=== PATIENT | male | born 1975 | race Caucasian/White ===

== ENCOUNTER 2019-09-05 10:43 | Inpatient (IN) | payer SELFPAY ==
[2019-09-05 10:55] VITALS: BP 124/84; PULSE 100; RESP 18; TEMP 36.7; O2SAT 97; BMI 26.5
--- NOTE | 2019-09-05 11:03 | ED_ITS ---
HPI - Psych General: Chief Complaint: Psychiatric Symptoms Stated Complaint: MHE Time Seen by Provider: 09/05/19 11:03 Source: patient Mode of arrival: ambulatory Limitations: no limitations History of Present Illness: HPI Narrative: Patient is a 44-year-old male who presents to ED today with complaints of worsening depression and anxiety; patient states he has felt suicidal over the past couple of days; patient states he loaded a gun and [place] the [place] last night with a plan to kill himself; patient reports 1 previous suicide attempt almost 20 years ago; he admits to marijuana use and occasional alcohol use as well as previous methamphetamine use but has not used in over 3 years; patient does not have a PCP, psychiatrist, counselor/therapist; denies visual or auditory hallucinations MD complaint: suicidal ideation and feels depressed History of same: Yes Associated psychiatric symptoms: depression and suicidal ideation Associated symptoms: Reports depression and suicidal ideation; Deny auditory hallucinations, visual hallucinations or homicidal ideation Treatments prior to arrival: none If self harm: admits thoughts of self harm Review of Systems Const: Denies: fever or chills Card: Denies: chest pain, palpitations, lightheadedness or syncope Resp: Denies: shortness of breath GI: Denies: abdominal pain, nausea, vomiting or diarrhea Skin/Breast: Denies: rash Neuro: Denies: headache Psych: Reports: anxiety, depression, hopelessness and suicidal ideation; Denies: mood swings, panic attacks, visual hallucinations, auditory hallucinations or homicidal ideation PFSH ED PFSH: Statuses (acute, chronic, etc) shown below reflect problem list status as previously entered and may not be historically accurate Social History Smoking and tobacco status: current every day smoker Physical Exam Const: COMMON NORMALS: no apparent distress, oriented x3, alert and well nourished GENERAL APPEARANCE: cooperative and well kempt Resp: COMMON NORMALS: normal respiratory effort and clear to auscultation bilaterally AUSCULTATION: clear to auscultation bilaterally Cardio: COMMON NORMALS: regular rate and regular rhythm RATE: regular rate RHYTHM: regular rhythm Neuro: COMMON NORMALS: oriented x3 SENSORIUM/ORIENTATION: Yes alert Psych: COMMON NORMALS: mental status grossly normal, thought process normal, cooperative, speech normal and activity/motor behavior normal APPEARANCE: Yes well kempt ACTIVITY/MOTOR BEHAVIOR: Yes appropriate eye contact and No psychomotor agitation SPEECH: Yes normal speech MOOD & AFFECT: Yes flat affect THOUGHT PROCESS: normal thought process THOUGHT CONTENT: Yes suicidality MEMORY/COGNITION: Yes cognition grossly intact INSIGHT: ins ight good JUDGEMENT: judgment good MDM - Psych MDM Narrative: Medical decision making narrative: Dr. Meyer will place admit orders. Lab Data: Labs: Lab Results 09/05/19 09/05/19 09/05/19 Range/Units 11:30 11:45 11:45 WBC 8.0 (4.0-10.0) 10^3/ uL RBC 5.29 (4.1-5.3) 10^6/u L Hgb 16.0 (11.7-16.6) g/dL Hct 46.4 (42.0-52.0) % MCV 87.7 (80-94) fL MCH 30.2 (28.0-34.0) pg MCHC 34.5 (30.0-36.0) g/dL RDW 12.3 (12.1-15.1) % Plt Count 249 (130-400) 10^3/c mm MPV 9.3 (7.4-10.4) fL Neut % (Auto) 67.4 % Lymph % (Auto) 25.8 % Hutchinson % (Auto) 6.1 % Eos % (Auto) 0.2 % Baso % (Auto) 0.4 % Neut # (Auto) 5.4 (1.8-7.7) 10^3/u L Lymph # (Auto) 2.1 (0.8-4.8) 10^3/u L Hutchinson # (Auto) 0.5 (0.2-0.9) 10^3/u L Eos # (Auto) 0.0 (0.0-0.8) 10^3/u L Baso # (Auto) 0.0 (0.0-0.1) 10^3/u L Nucleated RBC % (a uto) 0 % Nucleated RBCs # 0.0 /100WBC Sodium 138 (136-145) mmol/L Potassium 4.3 (3.5-5.1) mmol/L Chloride 100 (98-107) mmol/L Carbon Dioxide 28 (22-29) mmol/L Anion Gap 14.3 (5-19) BUN 8 (6-20) mg/dL Creatinine 1.1 (0.7-1.2) mg/dL GFR Calculation 73.4 L (90-130) mL/min Glucose 107 (74-109) mg/dL Calcium 10.6 H (8.6-10.0) mg/Dl Total Bilirubin 0.9 (0.15-1.2) mg/dL AST 16 (0-40) U/L ALT 19 (0-41) U/L Alkaline Phosphata se 98 (40-130) IU/L Total Protein 7.6 (6.6-8.7) g/dL Albumin 4.8 (3.5-5.2) g/dL Globulin 2.8 (1.3-4.6) g/dL Salicylates < 0.3 L (3-10) mg/dL Urine Opiates Scre en Negative (Negative) ng/mL Acetaminophen < 5.0 L (10-30) ug/mL Ur Barbiturates Sc reen Negative (Negative) ng/mL Ur Phencyclidine S crn Negative (Negative) ng/mL Ur Amphetamines Sc reen Negative (Negative) ng/mL U Benzodiazepines Scrn Negative (Negative) ng/mL Urine Cocaine Scre en Negative (Negative) ng/mL U Marijuana (THC) Screen Positive H (Negative) ng/mL Ethyl Alcohol < 10 (0-10) mg/dL Discharge Plan Discharge Patient Disposition: Xfer Psychiatric Hosp Clinical Impression: Suicidal ideation Condition: Stable Coding Level of Care Code ED Hospitality Services Manager for Monique Cruz Exam Problem Focused
--- NOTE | 2019-09-05 11:21 | PC.NURSE ---
Patient states his pain is chronic, has no prescription for and does not want to go to pain clinic because they are just drug pushers.
--- NOTE | 2019-09-05 11:36 | PC.NURSE ---
pt placed in paper scrubs and belongings placed in labeled bags. pt belongings placed outside of room. pt ambulated to bathroom and provided urine sample. UA at bedside. RN notified. Pt given warm blanket and has no further needs at this time. Sitter at bedside.
[2019-09-05 11:52] LABS: Basophils % 0.4 %; Eosinophils % 0.2 %; Hematocrit 46.4 % (42.0-52.0); Lymphocytes # 2.1 10^3/uL (0.8-4.8); Lymphocytes % 25.8 %; Mean Corpuscular HGB Conc 34.5 g/dL (30.0-36.0); Mean Corpuscular Hemoglobin 30.2 pg (28.0-34.0); Mean Corpuscular Volume 87.7 fL (80-94); Mean Platelet Volume 9.3 fL (7.4-10.4); Monocytes # 0.5 10^3/uL (0.2-0.9); Monocytes % 6.1 %; Neutrophils # 5.4 10^3/uL (1.8-7.7); Neutrophils % 67.4 %; Nucleated Red Blood Cells % 0 %; Platelet Count 249 10^3/cmm (130-400); Red Blood Count 5.29 10^6/uL (4.1-5.3); Red Cell Distribution Width 12.3 % (12.1-15.1)
[2019-09-05 12:04] LABS: Alanine Aminotransferase 19 U/L (0-41); Albumin Level 4.8 g/dL (3.5-5.2); Alkaline Phosphatase 98 IU/L (40-130); Anion Gap 14.3 (5-19); Aspartate Amino Transferase 16 U/L (0-40); Blood Urea Nitrogen 8 mg/dL (6-20); Calcium 10.6 mg/Dl (8.6-10.0); Carbon Dioxide 28 mmol/L (22-29); Chloride 100 mmol/L (98-107); Globulin 2.8 g/dL (1.3-4.6); Glomerular Filtration Rate 73.4 mL/min (90-130); Glucose 107 mg/dL (74-109); Potassium 4.3 mmol/L (3.5-5.1); Sodium 138 mmol/L (136-145); Total Bilirubin 0.9 mg/dL (0.15-1.2); Total Protein 7.6 g/dL (6.6-8.7)
[2019-09-05 12:06] LABS: Acetaminophen < 5.0 ug/mL (10-30); Alcohol Level < 10 mg/dL (0-10); Salicylate < 0.3 mg/dL (3-10)
[2019-09-05 12:11] LABS: Amphetamines Screen Urine Negative (Negative); Barbiturates Screen Urine Negative (Negative); Benzodiazepines Screen Urine Negative (Negative); Cocaine Screen Urine Negative (Negative); Opiate Screen Urine Negative (Negative); PCP Screen Urine Negative (Negative); THC Screen Urine Positive (Negative)
[2019-09-05 14:39] VITALS: BP 117/83; PULSE 82; RESP 18; TEMP 36.9; O2SAT 95
[2019-09-05 15:00] VITALS: BP 117/83; PULSE 82; RESP 18; TEMP 36.9; O2SAT 95
[2019-09-05 15:51] VITALS: BP 126/77; PULSE 91; RESP 18; TEMP 36.4; O2SAT 99
[2019-09-05] MEDS: acetaminophen 325 mg Tablet 650 MG PO (19:40)
[2019-09-05 19:57] VITALS: BP 119/81; PULSE 79; RESP 19; TEMP 36.6; O2SAT 95
[2019-09-06 06:00] VITALS: BP 118/81; PULSE 78; RESP 18; TEMP 36.5; O2SAT 97
[2019-09-06] MEDS: acetaminophen 325 mg Tablet 650 MG PO (07:38)
[2019-09-06 14:00] VITALS: BP 107/74; PULSE 88; RESP 16; TEMP 36.7; O2SAT 97
--- NOTE | 2019-09-06 17:51 | P.HP_ITS ---
Providers/Chief Complaint Admitting Physician: Noble Basurto MD Chief Complaint: SUICIDAL IDEATIONS HPI NPU History of Present Illness Tuan Carvalho is a 44 year old male who presented to the emergency room after reportedly going out into the [place] with a loaded weapon with a plan to kill himself. He endorses depression without clear etiology. He does endorse that he has had periods of difficulties with relationships and things of that nature. He reports that he has these periods of high energy but poor functioning with poor sleep. He reports that he has family but is not connected to them. He re ports array of optimism though because reportedly a good friend had heard that he was somewhat down and out and said that he would have worked for him as soon as he got out of the hospital and was stable. He reports a previous trial of Prozac and Wellbutrin that were ineffective for reasons that he does not quite recall he denies ever being on a mood stabilizer. We discussed the risks benefits and alternatives of a trial of medication and he understood and agreed to proceed as is documented in his note. Psychiatric history: As above. No inpatient hospitalizations. Substance abuse history: He endorses smoking cigarettes, and also endorses drinking alcohol smoking marijuana, but does not endorse significant addiction treatment. His UDS was positive for cannabis. Developmental history: He reports that his mother's with him was unremarkable and he learned to walk and talk and met his developmental milestones on time. When he went to school he denies speech therapy, learning support or emotional support or special education classes. Psychosocial history: He reports that his parents were together when he was born. He reports that his childhood was tough at times. He endorses being a heterosexual with his longest relationship being a few years. He denied being , but reports having 2 sons one is 18 and in the [employer] with whom he has no contact the other is 12. He denies being in the and endorses being a [employer]. 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 He endorses having his own apartment. Legal history: He has been in alf before but denies significant legal issues. Meds NPU Home Medications Medication Instructions Recorded Confirmed Type naproxen sodium [Aleve] 440 mg PO BID PRN 09/05/19 09/05/19 History Allergies Allergy/AdvReac Type Severity Reaction Status Date / Time No Known Allergies Allergy Verified 09/05/19 11:02 [facility] NPU PFS: Statuses (acute, chronic, etc) shown below reflect problem list status as previously entered and may not be historically accurate Social History Smoking and tobacco status: current every day smoker Mental Status Exam MSE Comments: This is a well-nourished well-developed white male with adequate dress, grooming and eye contact. No abnormal movements except for psychomotor retardation. Cooperative with exam in mild distress. Speech decreased rate and normal volume. Mood described as depressed affect congruent. Thought process organized. Thought content: Patient endorsed suicidal thoughts but denied any homicidal thoughts, there were no delusions reported or noted, he denies any auditory or visual hallucinations. Attention and concentration were intact and memory appeared reliable but none were formally tested. He is alert and oriented x3. Insight and judgment are fair. Vitals/I&O/Wt Last Vital Signs Temp 98.0 F 09/06/19 14:00 Pulse 88 09/06/19 14:00 Resp 16 09/06/19 14:00 BP 107/74 09/06/19 14:00 Pulse Ox 97 09/06/19 14:00 Weight last 48 hrs Weight 83.915 kg A&P Assessment and plan (1) Depressive disorder: This is a 44-year-old white male with a reported history of mood issues going back to his you but without significant treatment in his life who presents after reportedly going into the [place] with a loaded weapon with thoughts to kill himself before coming to the emergency room. 1. Continue current medications. 2. Start Lexapro 10 mg p.o. every morning and consider the possibility of a mood stabilizer. 3. Encouraged individual, group and milieu therapy. 4. Continue every 15 minute checks for safety. 5. Encourage sober living follow-up to the highest level to which he is willing to commit. Status: Acute Code(s): F32.9 - Major depressive disorder, single episode, unspecified Involuntary Hold Information 96 Hour Hold: 96 Hour Involuntary Admission: No Attestations NPU Medical Necessity Statement*: Inpatient hospitalization is medically necessary and the clinically appropriate intervention at this time. He will be in the hospital for over 2 midnights. We will initiate medication and titrate and monitor for effect. Likely length of stay 3-5 days. Coding Level of Care Code Acute Primer Assembler for Monique Cruz Diagnoses Depressive disorder F32.9
[2019-09-06] MEDS: escitalopram 10 mg Tablet PO (19:12)
[2019-09-06] MEDS: nicotine 2 mg Gum BUCCAL (19:54)
[2019-09-06 20:46] VITALS: BP 110/75; PULSE 72; RESP 16; TEMP 36.9; O2SAT 95
[2019-09-07 06:00] VITALS: BP 114/76; PULSE 72; RESP 16; TEMP 36.9; O2SAT 96
[2019-09-07] MEDS: acetaminophen 325 mg Tablet 650 MG PO ×2 (07:54→18:11)
[2019-09-07] MEDS: escitalopram 10 mg Tablet PO (08:02)
--- NOTE | 2019-09-07 10:01 | P.PN_ITS ---
Subjective NPU Subjective: Interval history: Tuan presents today reporting that he feels a little tired or dragging with the initiation of the Lexapro. Otherwise he denies feeling worse and endorses a plan moving forward to get back to work and get things back on track. He reports that he has spoken with his younger son is hoping to see him soon. He reports that he knows some of the things he needs to do for them to get better. It is just a matter of doing them. He is still complaining of his shoulder pain being extreme and making it nearly impossible to sleep. We discussed getting a hospitalist consult to evaluate what the source of that extreme pain is. Mental Status Exam MSE Comments: This is a well-nourished well-developed white male with adequate dress, grooming and eye contact. No abnormal movements except for psychomotor retardation. Cooperative with exam in mild distress. Speech decreased rate and normal volume. Mood described as depressed affect congruent. Thought process organized. Thought content: Patient endorsed suicidal thoughts that are lessening but denied any homicidal thoughts, there were no delusions reported or noted, he denies any auditory or visual hallucinations. Attention and concentration were intact and memory appeared reliable but none were formally tested. He is alert and oriented x3. Insight and judgment are fair. Vitals/I&O/Wt Last Vital Signs Temp 97.9 F 09/08/19 06:00 Pulse 69 09/08/19 06:00 Resp 17 09/08/19 06:00 BP 123/82 09/08/19 06:00 Pulse Ox 98 09/08/19 06:00 A&P Additional A&P Information Additional A&P Information: This is a 44-year-old white male with a reported history of mood issues going back to his you but without significant treatment in his life who presents after reportedly [facility] a loaded [place] with thoughts to kill himself before coming to the emergency room. 1. Continue current medications. 2. consider the possibility of a mood stabilizer. 3. Encouraged individual, group and milieu therapy. 4. Continue every 15 minute checks for safety. 5. Encourage sober living follow-up to the highest level to which he is willing to commit. Involuntary Hold Information 96 Hour Hold: 96 Hour Involuntary Admission: No Attestations NPU Medical Necessity Statement*: Inpatient hospitalization is medically necessary and the clinically appropriate intervention at this time. We will initiate medication and titrate and monitor for effect. Likely length of stay 2-4 days. Coding Level of Care Code Acute Swedger for Monique Cruz
[2019-09-07 14:00] VITALS: BP 113/76; PULSE 87; RESP 19; TEMP 36.9; O2SAT 97
[2019-09-07] MEDS: nicotine 2 mg Gum BUCCAL (17:29)
[2019-09-07 19:54] VITALS: BP 109/75; PULSE 76; RESP 17; TEMP 36.9; O2SAT 95
[2019-09-08 06:00] VITALS: BP 123/82; PULSE 69; RESP 17; TEMP 36.6; O2SAT 98
[2019-09-08] MEDS: escitalopram 10 mg Tablet PO (09:25)
--- NOTE | 2019-09-08 10:10 | P.PN_ITS ---
Subjective NPU Subjective: Interval history: Tuan presents today reporting that he is going okay on the medication. The hospitalist came by to evaluate shoulder and we agreed to await his recommendations prior to making any decisions. At this point he is feeling optimistic about getting back to work with his mood managed and returning to previous level of high functioning. 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 He reports that he is hopeful that the medication will help curb his mood and with possible recommendations for his shoulder he might really get back on track. Mental Status Exam MSE Comments: This is a well-nourished well-developed white male with adequate dress, grooming and eye contact. No abnormal movements except for improving psychomotor retardation. Cooperative with exam in mild distress. Speech decrea sed rate and normal volume. Mood described as a little better, affect congruent. Thought process organized. Thought content: Patient endorsed suicidal thoughts continue to decrease and denied any homicidal thoughts, there were no delusions reported or noted, he denies any auditory or visual hallucinations. Attention and concentration were intact and memory appeared reliable but none were formally tested. He is alert and oriented x3. Insight and judgment are fair. Vitals/I&O/Wt Last Vital Signs Temp 97.9 F 09/08/19 06:00 Pulse 69 09/08/19 06:00 Resp 17 09/08/19 06:00 BP 123/82 09/08/19 06:00 Pulse Ox 98 09/08/19 06:00 A&P Additional A&P Information Additional A&P Information: This is a 44-year-old white male with a reported history of mood issues going back to his you but without significant treatment in his life who presents after reportedly going into the [place] with a loaded weapon with thoughts to kill himself before coming to the emergency room. 1. Continue current medications. 2. consider the possibility of a mood stabilizer. 3. Encouraged individual, group and milieu therapy. 4. Continue every 15 minute checks for safety. 5. Encourage sober living follow-up to the highest level to which he is willing to commit. Involuntary Hold Information 96 Hour Hold: 96 Hour Involuntary Admission: No Attestations NPU Medical Necessity Statement*: Inpatient hospitalization is medically necessary and the clinically appropriate intervention at this time. We will initiate medication and titrate and monitor for effect. Likely length of stay 2-3 days. Coding Level of Care Code Acute Beauty Shop Manager for Monique Cruz
[2019-09-08] MEDS: acetaminophen 325 mg Tablet 650 MG PO ×2 (13:29→20:20)
[2019-09-08 13:51] VITALS: BP 113/75; PULSE 64; RESP 18; TEMP 36.6; O2SAT 97
--- NOTE | 2019-09-08 15:53 | XRR_ITS ---
PROCEDURE INFORMATION: Exam: XR Left Shoulder Exam date and time: 09/08/2019 3:54 PM Age: 44 years old Clinical indication: Pain; Shoulder; Left TECHNIQUE: Imaging protocol: XR Left shoulder. Views: 2 or more views. COMPARISON: No relevant prior studies available. FINDINGS: There is no acute fracture or dislocation. The acromioclavicular joint alignment is appropriate. The subacromial joint space is well-preserved. The glenohumeral joint is unremarkable. No calcific tendinopathy. The visualized lung apex is clear. The visualized ribs are intact. Other findings: Moderate degenerative changes of the left acromioclavicular joint are noted. XR/XR shoulder LT min 2V* [id number] IMPRESSION: No acute bony abnormality.
--- NOTE | 2019-09-08 15:53 | ECG_ITS ---
Measurements Intervals [place] Rate: 66 P: MO: 0 QRS: -19 QRSD: 137 T: 75 QT: 455 QTc: 478 ATRIAL FLUTTER/TACHYCARDIA INTRAVENTRICULAR CONDUCTION DELAY [130+ ms QRS DURATION] No previous ECG available for comparison Electronically Signed On 09-09-2019 19:12:22 ELECTRODE CLEANER by Fadumo Lyons M.D. [email or web address]
--- NOTE | 2019-09-08 16:03 | CTR_ITS ---
PROCEDURE INFORMATION: Exam: CT Cervical Spine Without Contrast Exam date and time: 09/08/2019 4:07 PM Age: 44 years old Clinical indication: Neck pain and other: Lt shoulder pain; Additional info: Left shoulder pain with pins and needle TECHNIQUE: Imaging protocol: Computed tomography images of the cervical spine without contrast. Total DLP: 541.41 mGy-cm Radiation optimization: All CT scans at this facility use at least one of these dose optimization techniques: automated exposure control; mA and/or kV adjustment per patient size (includes targeted exams where dose is matched to clinical indication); or iterative reconstruction. COMPARISON: No relevant prior studies available. FINDINGS: Vertebrae: No acute fracture. Normal alignment. Discs/Spinal canal/Neural foramina: No spinal stenosis. No neural foraminal narrowing. Soft tissues: Unremarkable. Lungs: Lung apices are normal. CT/CT cervical spin wo con* [id number] IMPRESSION: No acute findings. Radiation Dose CTDIVOL = (mGy): DLP = 541.41 (mGy-cm)
--- NOTE | 2019-09-08 16:14 | PC.NURSE ---
PT IS CURRENTLY OFF OF THE FLOOR ACCOMPANIED BY SECURITY TO CT.
--- NOTE | 2019-09-08 16:30 | PC.NURSE ---
PT RETURNED TO UNIT ACCOMPANIED BY SECURITY.
--- NOTE | 2019-09-08 16:30 | PM.PN ---
Subjective Subjective: Interval history: Seen in NPU with nurse bedside. No acute events. Denies any SOB, CP ,cough, headache, palpitations, N/V, abdominal pain. Medications: Reviewed: Yes Vitals/I&O/Wt Last Vital Signs Temp 97.9 F 09/08/19 13:51 Pulse 64 09/08/19 13:51 Resp 18 09/08/19 13:51 BP 113/75 09/08/19 13:51 Pulse Ox 97 09/08/19 13:51 Physical Exam Narrative: EXAM NARRATIVE: General: No acute distress, AO x3 HEENT: PERRLA, pupils bilaterally equal and reactive Chest: Normal vesicular breath sounds, no added sounds, equal good air entry bilaterally CVS: S1-S2 regular, no murmurs, no tachycardia, no gallops, no rubs Abdomen: Soft, nontender, no organomegaly, bowel sounds present Neuro: No focal deficits, no facial deformity, AO x3, power 5/5 in all limbs A&P Assessment and plan (1) Depressive disorder: Status: Acute Code(s): F32.9 - Major depressive disorder, single episode, unspecified (2) Suicidal ideation: Status: Acute Code(s): R45.851 - Suicidal ideations (3) Left shoulder pain: Status: Acute Code(s): M25.512 - Pain in left shoulder (4) Atrial flutter: Status: Acute Code(s): I48.92 - Unspecified atrial flutter Additional A&P Information Additional A&P Information: Shoulder pain: Imaging reviewed. S/o degenerative changes. Will advice PT as patient has never had PT before. Will need OP PT as well Naproxen for pain, Ice packs. A flutter on EKG: Pt has f/h/o arrhythmia. Denies any palpitations. Rate controlled. TSH along with other labs which were ordered awaited. Vitals Qshift. D/w Dr. Basurto. Will start pt on Eliquis 5 mg BID. Discussed with patient regarding risk factor vs benifits. Patient verbalised understanding and wants to start meds. Would need ECHO once cleared from NPU. Can get as outpatient. If elevated HR can start on low dose lopressor 12.5 mg BID. Controlled for now so will hold off. Thank you for consult. Will continue to follow Attestations Medical Necessity Statement*: As per primary team. Coding Level of Care Code Acute Lead Informatica Developer for Monique Linderd Diagnoses Depressive disorder F32.9 Suicidal ideation R45.851 Left shoulder pain M25.512 Atrial flutter I48.92
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
[2019-09-08 19:43] VITALS: BP 118/79; PULSE 69; RESP 18; TEMP 36.7; O2SAT 98
[2019-09-08] MEDS: trazodone 50 mg Tablet PO (21:42)
[2019-09-09 06:00] VITALS: BP 120/77; PULSE 71; RESP 20; TEMP 36.5; O2SAT 97
[2019-09-09] MEDS: escitalopram 10 mg Tablet PO (08:19)
[2019-09-09] MEDS: acetaminophen 325 mg Tablet 650 MG PO ×3 (08:20→20:51)
[2019-09-09 08:32] LABS: Chol HDL Ratio 3.87 mg/dL (1.0-5.00); Cholesterol 174 mg/dL (0-200); HDL Cholesterol 45 mg/dL (60-100); LDL Cholesterol Calculated 111 mg/dL (50-129); Thyroid Stimulating Hormone 1.11 uIU/mL (0.27-4.20); Triglycerides 91 mg/dL (0-150); VLDL Cholestrol Calculation 18 mg/dL (0-30)
[2019-09-09 09:08] LABS: Estmated Average Glucose 100; Hemoglobin A1C 5.1 % (4.0-6.0)
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
[2019-09-09 14:00] VITALS: BP 135/83; PULSE 83; RESP 20; TEMP 36.9; O2SAT 96
[2019-09-09] MEDS: apixaban 5 mg Tablet PO (17:08)
[2019-09-09 20:04] VITALS: BP 129/86; PULSE 68; RESP 16; TEMP 36.6; O2SAT 97
[2019-09-09 20:27] VITALS: BP 129/86; PULSE 68; RESP 16; TEMP 36.6; O2SAT 97
[2019-09-09] MEDS: trazodone 50 mg Tablet PO (22:31)
[2019-09-10 06:00] VITALS: BP 133/80; PULSE 74; RESP 19; TEMP 36.6; O2SAT 97
[2019-09-10 07:05] LABS: Hematocrit 41.7 % (42.0-52.0); Hemoglobin 14.4 g/dL (11.7-16.6)
[2019-09-10] MEDS: apixaban 5 mg Tablet PO (09:07)
[2019-09-10] MEDS: escitalopram 10 mg Tablet PO (09:07)
[2019-09-10] MEDS: acetaminophen 325 mg Tablet 650 MG PO (09:09)
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
[2019-09-10 13:21] VITALS: RESP 19; TEMP 36.6; O2SAT 97
--- NOTE | 2019-09-10 13:27 | PM.PN ---
Subjective Subjective: Interval history: No acute events. Called by the NPU social media manager regarding patient's discharge instructions. Medications: Reviewed: Yes Vitals/I&O/Wt Last Vital Signs Temp 98 F 09/10/19 13:21 Pulse 74 09/10/19 06:00 Resp 19 H 09/10/19 13:21 BP 133/80 09/10/19 06:00 Pulse Ox 97 09/10/19 13:21 Weight last 48 hrs Weight 83.688 kg Physical Exam Narrative: EXAM NARRATIVE: General: No acute distress, AO x3 HEENT: PERRLA, pupils bilaterally equal and reactive Chest: Normal vesicular breath sounds, no added sounds, equal good air entry bilaterally CVS: S1-S2 irregular, no murmurs, no tachycardia, no gallops, no rubs Abdomen: Soft, nontender, no organomegaly, bowel sounds present Neuro: No focal deficits, no facial deformity, AO x3, power 5/5 in all limbs A&P Assessment and plan (1) Depressive disorder: Status: Acute Code(s): F32.9 - Major depressive disorder, single episode, unspecified (2) Suicidal ideation: Status: Acute Code(s): R45.851 - Suicidal ideations (3) Left shoulder pain: Status: Acute Code(s): M25.512 - Pain in left shoulder (4) Atrial flutter: Status: Acute Code(s): I48.92 - Unspecified atrial flutter Additional A&P Information Additional A&P Information: Shoulder pain: Imaging reviewed. S/o degenerative changes. Patient will need outpatient physical therapy for degenerative left shoulder pain. Can use naproxen for pain. Ice packs as needed. A flutter on EKG: Pt has f/h/o arrhythmia. Denies any palpitations. Rate controlled. TSH and other labs in normal limits. Patient to be discharged on Eliquis 5 mg twice daily. Patient to have an echocardiogram as an outpatient within next 1 week and follow-up with primary care physician and cardiology within next 2 weeks for further work-up. Patient has remained rate controlled while admission so we will not start on any rate limiting drug.. Patient is stable enough to be discharged as per medicine point of view when ready by the primary team. Attestations Medical Necessity Statement*: As per primary team Time Spent in Patient Care: less than 15 minutes Coding Level of Care Code Acute Can Line Examiner for Chg Fwd Diagnoses Depressive disorder F32.9 Suicidal ideation R45.851 Left shoulder pain M25.512 Atrial flutter I48.92
--- NOTE | 2019-09-11 11:47 | PC.SOCIAL ---
Patient contacted at home and updated about the time and dates for his appointments with Dr. Lyons and [facility].
--- NOTE | 2019-09-11 14:32 | PC.SOCIAL ---
Eliquis patient assistance application faxed in. Notified Dr. Lyons's office that the assistance program may need to be reapplied for if he remains on Eliquis.
== END 2019-09-10 15:05 | disposition home or self-care (01) | DRG 881 ==
LOC: ER 12:42 → NP 15:06
PROVIDERS: Student in an Organized Health Care Education/Training Program; Admitting Provider Psychiatry & Neurology Psychiatry; Emergency Provider Physician Assistant; Visit Provider Psychiatry & Neurology Psychiatry
DX: F32.9 Major depressive disorder, single episode, unspecified (principal); I48.92 Unspecified atrial flutter; R45.851 Suicidal ideations; F17.210 Nicotine dependence, cigarettes, uncomplicated; M25.512 Pain in left shoulder
CPT/HCPCS: 12345; 36415; 72125; 73030; 80053; 80061; 80307; 83036; 84443; 85014; 85018; 85025; 93005; 97110; 97161; 99284; A9270

== ENCOUNTER 2019-09-24 13:39 | Outpatient (CLI) | payer SELFPAY ==
--- NOTE | 2019-09-24 14:15 | USCV_ITS ---
Tuan Carvalho Age: 44 Gender: M : 1975 Exam Date: 09/24/2019 14:10 Ordering Phys: Herbie Prescott MD Technologist: Josephine Meza Exam Location: [facility] [place] Indication: new a flutter BP: / HR: 72 Rhythm: Sinus Technical Quality: Good MEASUREMENTS (Male / Female) Normal Values 2D ECHO LV Diastolic Diameter PLAX 4.4 cm 4.2 - 5.9 / 3.9 - 5.3 cm LV Systolic Diameter PLAX 3.0 cm IVS Diastolic Thickness 0.9 cm 0.6 - 1.0 / 0.6 - 0.9 cm IVS Systolic Thickness 1.1 cm LVPW Diastolic Thickness 0.7 cm 0.6 - 1.0 / 0.6 - 0.9 cm LVPW Systolic Thickness 1.2 cm LVOT Diameter 2.0 cm LV Ejection Fraction 2D Teich 59.4 % LV Ejection Fraction MOD 2C 68.1 % LV Ejection Fraction 2C AL 68.5 % LA Diameter 2.9 cm LA Width 2.9 cm LA Height 3.6 cm RA Width 3.2 cm RA Height 4.5 cm M-MODE LV Diastolic Diameter MM 4.6 cm 4.2 - 5.9 / 3.9 - 5.3 cm LV Systolic Diameter MM 3.6 cm LV Ejection Fraction MM Teich 46.7 % IVS Diastolic Thickness MM 0.8 cm 0.6 - 1.0 / 0.6 - 0.9 cm IVS Systolic Thickness MM 0.6 cm LVPW Diastolic Thickness MM 0.6 cm 0.6 - 1.0 / 0.6 - 0.9 cm LVPW Systolic Thickness MM 1.1 cm Aortic Annulus Diameter 2.7 cm LA Ao Ratio MM 1.1 MV E Point Septal Separation 0.3 cm DOPPLER AV Peak Velocity 120.0 cm/s LVOT Peak Velocity 99.0 cm/s AV Area Cont Eq vti 2.8 cm squared AV Area Cont Eq pk 2.7 cm squared MV Peak Velocity 91.0 cm/s MV Area PHT 3.5 cm squared Mitral E to A Ratio 1.2 MV E' Velocity 15.0 cm/s Mitral E to MV E' Ratio 5.0 Mitral E to LV E' Lateral Ratio 5.0 Mitral E to LV E' Septal Ratio 5.0 TR Peak Velocity 226.0 cm/s TR Peak Gradient 20.4 mmHg Right Atrial Pressure 3.0 mmHg Pulmonary Artery Systolic Pressu 23.4 mmHg PV Peak Velocity 108.0 cm/s RV Acceleration Time 0.1 s FINDINGS Left Ventricle Normal left ventricular size, systolic function and wall thickness, with no regional wall motion abnormalities. Normal left ventricular wall thickness. Normal diastolic filling pattern. Left ventricular ejection fraction is estimated at 60 %. Right Ventricle The right ventricle is normal in size and function. Right Atrium The right atrium is normal in size. Left Atrium The left atrium is normal in size. Mitral Valve Structurally normal mitral valve without significant stenosis or prolapse. There is no mitral regurgitation. Aortic Valve Structurally normal aortic valve without significant sclerosis or stenosis. There is no aortic regurgitation. Tricuspid Valve Structurally normal tricuspid valve without significant stenosis or regurgitation. Pulmonary artery systolic pressure is normal. Pulmonic Valve Structurally normal pulmonic valve without significant stenosis. There is no pulmonic regurgitation. Pericardium Normal pericardium without effusion. Aorta Normal ascending aorta dimension. CONCLUSIONS Normal transthoracic echocardiogram. There are no prior echocardiogram studies to compare. Dr. Boone Claudio MD (Electronically Signed) Final Date: 24 September 2019 17:45 S
== END 2019-09-24 13:40 | disposition home or self-care (01) ==
LOC: RAD 13:41
PROVIDERS: Visit Provider Student in an Organized Health Care Education/Training Program
DX: I48.92 Unspecified atrial flutter (principal)
CPT/HCPCS: 93306